=== PATIENT | female | born 1950 | race Caucasian/White ===

== ENCOUNTER 2021-03-16 11:52 | Observation (INO) | payer MEDICARE ==
[2021-03-16 12:53] LABS: Glucose,Whole Blood 99 mg/dL (75-99)
[2021-03-16] MEDS ORDERED: SODIUM CHLORIDE 0.9% 1,000 ML IV STA (13:04)
--- NOTE | 2021-03-16 13:04 | ED ---
General Adult HPI - General Chief complaint: Neuro Symptoms/Deficit Stated complaint: slurred speech, N/V/D Time Seen by Provider: 03/16/21 12:57 Source: patient Mode of arrival: ambulatory Limitations: no limitations - History of Present Illness Initial comments: Patient presents with nausea and vomiting and diarrhea. She also has intermittent confusion. She has a headache. Her symptoms began a few days ago. Although they're waxing and waning, she does feel like her symptoms are getting worse. She has no focal deficits. She has no belly pain. She has no back pain. She does not believe she has lost consciousness. She has had no sick contacts. She hasn't traveling her. She wasn't doing anything when this began. - Related Data Home Medications Medication Instructions Recorded Confirmed Ergocalciferol [Vitamin D2 (1250 1,250 mcg PO Q7D 03/16/21 03/16/21 Mcg = 19091 Iu)] Ferrous Sulfate [Feosol] 325 mg PO DAILY 03/16/21 03/16/21 LORazepam 1 mg PO BID PRN 03/16/21 03/16/21 Levothyroxine Sodium 125 mcg PO DAILY 03/16/21 03/16/21 Naproxen Sodium [Aleve] 220 mg PO DAILY PRN 03/16/21 03/16/21 Allergies Allergy/AdvReac Type Severity Reaction Status Date / Time fentanyl Allergy Per PCP Verified 03/16/21 14:38 Review of Systems ROS Statement: Those systems with pertinent positive or pertinent negative responses have been documented in the HPI. ROS Other: All systems not noted in ROS Statement are negative. Past Medical History Past Medical History: Thyroid Disorder History of Any Multi-Drug Resistant Organisms: None Reported Past Surgical History: No Surgical Hx Reported Past Psychological History: No Psychological Hx Reported Smoking Status: Former smoker Past Alcohol Use History: None Reported Past Drug Use History: None Reported General Exam Limitations: no limitations General appearance: alert, in no apparent distress Head exam: Present: atraumatic, normocephalic, normal inspection Eye exam: Present: normal appearance, PERRL, EOMI. Absent: scleral icterus, co njunctival injection, periorbital swelling ENT exam: Present: normal exam, mucous membranes moist Neck exam: Present: normal inspection. Absent: tenderness, meningismus, lymphadenopathy Respiratory exam: Present: normal lung sounds bilaterally. Absent: respiratory distress, wheezes, rales, rhonchi, stridor Cardiovascular Exam: Present: regular rate, normal rhythm, normal heart sounds. Absent: systolic murmur, diastolic murmur, rubs, gallop, clicks GI/Abdominal exam: Present: soft, normal bowel sounds. Absent: distended, tenderness, guarding, rebound, rigid Extremities exam: Present: normal inspection, full ROM, normal capillary refill. Absent: tenderness, pedal edema, joint swelling, calf tenderness Back exam: Present: normal inspection Neurological exam: Present: alert, oriented X3, CN II-XII intact Psychiatric exam: Present: normal affect, normal mood Skin exam: Present: warm, dry, intact, normal color. Absent: rash Course Vital Signs 03/16/21 12:12 Temperature 97.9 F Pulse Rate 80 Respiratory 16 Rate Blood Pressure 150/80 O2 Sat by Pulse 98 Oximetry EKG Findings - EKG Comments: EKG Findings:: Twelve-lead EKG shows ventricular rate 73 bpm, normal DE interval and QRS complexes, no ST elevation or depression, interpreted by me as normal sinus rhythm. Medical Decision Making - Medical Decision Making Patient presents with continued off-and-on confusion, not feeling well, vomiting. She will be admitted to the hospital. - Lab Data Result diagrams: 03/16/21 13:04 03/16/21 13:04 Lab Results 03/16/21 03/16/21 03/16/21 Range/Units 12:52 13:04 13:04 WBC 4.0 (3.8-10.6) k/uL RBC 4.12 (3.80-5.40) m/uL Hgb 12.8 (11.4-16.0) gm/dL Hct 38.2 (34.0-46.0) % MCV 92.7 (80.0-100.0) fL MCH 31.1 (25.0-35.0) pg MCHC 33.5 (31.0-37.0) g/dL RDW 16.4 H (11.5-15.5) % Plt Count 111 L (150-450) k/uL MPV 7.8 Neutrophils % 78 % Lymphocytes % 9 % Monocytes % 9 % Eosinophils % 2 % Basophils % 0 % Neutrophils # 3.1 (1.3-7.7) k/uL Lymphocytes # 0.3 L (1.0-4.8) k/uL Monocytes # 0.3 (0-1.0) k/uL Eosinophils # 0.1 (0-0.7) k/uL Basophils # 0.0 (0-0.2) k/uL Anisocytosis Slight PT 12.7 H (9.0-12.0) sec INR 1.2 H (<1.2) APTT 23.1 (22.0-30.0) sec Sodium (137-145) mmol/L Potassium (3.5-5.1) mmol/L Chloride (98-107) mmol/L Carbon Dioxide (22-30) mmol/L Anion Gap mmol/L BUN (7-17) mg/dL Creatinine (0.52-1.04) mg/dL Est GFR (CKD-EPI)AfAm (>60 ml/min/1.73 sqM) Est GFR (CKD-EPI)NonAf (>60 ml/min/1.73 sqM) Glucose (74-99) mg/dL POC Glucose (mg/dL) 99 (75-99) mg/dL POC Glu [employer] Technology Instructor ID Pat Cartwright Calcium (8.4-10.2) mg/dL Total Bilirubin (0.2-1.3) mg/dL AST (14-36) U/L ALT (4-34) U/L Alkaline Phosphatase (38-126) U/L Troponin I (0.000-0.034) ng/mL Total Protein (6.3-8.2) g/dL Albumin (3.5-5.0) g/dL Urine Color Urine Appearance (Clear) Urine pH (5.0-8.0) Ur Specific [place] (1.001-1.035) Urine Protein (Negative) Urine Glucose (UA) (Negative) Urine Ketones (Negative) Urine Blood (Negative) Urine Nitrite (Negative) Urine Bilirubin (Negative) Urine Urobilinogen (<2.0) mg/dL Ur Leukocyte Esterase (Negative) 03/16/21 03/16/21 03/16/21 Range/Units 13:04 13:04 14:44 WBC (3.8-10.6) k/uL RBC (3.80-5.40) m/uL Hgb (11.4-16.0) gm/dL Hct (34.0-46.0) % MCV (80.0-100.0) fL MCH (25.0-35.0) pg MCHC (31.0-37.0) g/dL RDW (11.5-15.5) % Plt Count (150-450) k/uL MPV Neutrophils % % Lymphocytes % % Monocytes % % Eosinophils % % Basophils % % Neutrophils # (1.3-7.7) k/uL Lymphocytes # (1.0-4.8) k/uL Monocytes # (0-1.0) k/uL Eosinophils # (0-0.7) k/uL Basophils # (0-0.2) k/uL Anisocytosis PT (9.0-12.0) sec INR (<1.2) APTT (22.0-30.0) sec Sodium 138 (137-145) mmol/L Potassium 4.1 (3.5-5.1) mmol/L Chloride 109 H (98-107) mmol/L Carbon Dioxide 23 (22-30) mmol/L Anion Gap 6 mmol/L BUN 18 H (7-17) mg/dL Creatinine 0.47 L (0.52-1.04) mg/dL Est GFR (CKD-EPI)AfAm >90 (>60 ml/min/1.73 sqM) Est GFR (CKD-EPI)NonAf >90 (>60 ml/min/1.73 sqM) Glucose 113 H (74-99) mg/dL POC Glucose (mg/dL) (75-99) mg/dL POC Glu [employer] Systems Technology Instructor ID Calcium 9.5 (8.4-10.2) mg/dL Total Bilirubin 1.9 H (0.2-1.3) mg/dL AST 87 H (14-36) U/L ALT 56 H (4-34) U/L Alkaline Phosphatase 133 H (38-126) U/L Troponin I <0.012 (0.000-0.034) ng/mL Total Protein 7.9 (6.3-8.2) g/dL Albumin 3.5 (3.5-5.0) g/dL Urine Color Yellow Urine Appearance Clear (Clear) Urine pH 5.5 (5.0-8.0) Ur Specific [place] 1.007 (1.001-1.035) Urine Protein Negative (Negative) Urine Glucose (UA) Negative (Negative) Urine Ketones Negative (Negative) Urine Blood Negative (Negative) Urine Nitrite Negative (Negative) Urine Bilirubin Negative (Negative) Urine Urobilinogen <2.0 (<2.0) mg/dL Ur Leukocyte Esterase Negative (Negative) Disposition Clinical Impression: Confusion Disposition: ADMITTED IP TO THIS HOSP Condition: Fair Referrals: Shine Carcamo MD [Primary Care Provider] - 1-2 days
[2021-03-16] MEDS ORDERED: ONDANSETRON 4 MG/2 ML VIAL IVP STA ×2 (13:05→16:08)
[2021-03-16 13:23] LABS: Anisocytosis Slight; Basophils % (A) 0 %; Eosinophils # (A) 0.1 k/uL (0-0.7); Eosinophils % (A) 2 %; HCT 38.2 % (34.0-46.0); HGB 12.8 gm/dL (11.4-16.0); Lymphocytes # (A) 0.3 k/uL (1.0-4.8); Lymphocytes % (A) 9 %; MCH 31.1 pg (25.0-35.0); MCHC 33.5 g/dL (31.0-37.0); MCV 92.7 fL (80.0-100.0); Mean Platelet Volume 7.8; Monocytes # (A) 0.3 k/uL (0-1.0); Monocytes % (A) 9 %; Neutrophils # (A) 3.1 k/uL (1.3-7.7); Neutrophils % (A) 78 %; Platelet Count 111 k/uL (150-450); RBC 4.12 m/uL (3.80-5.40); RDW 16.4 % (11.5-15.5)
[2021-03-16 13:31] LABS: ALT 56 U/L (4-34); AST 87 U/L (14-36); African American GFR (CKD) >90 (>60 ml/min/1.73 sqM); Albumin 3.5 g/dL (3.5-5.0); Alkaline Phosphatase 133 U/L (38-126); Anion Gap 6 mmol/L; Blood Urea Nitrogen 18 mg/dL (7-17); Calcium 9.5 mg/dL (8.4-10.2); Carbon Dioxide 23 mmol/L (22-30); Chloride 109 mmol/L (98-107); Glucose 113 mg/dL (74-99); Non-African American GFR(CKD) >90 (>60 ml/min/1.73 sqM); Potassium 4.1 mmol/L (3.5-5.1); Sodium 138 mmol/L (137-145); Total Bilirubin 1.9 mg/dL (0.2-1.3); Total Protein 7.9 g/dL (6.3-8.2)
[2021-03-16 13:38] LABS: INR 1.2 (<1.2); Partial Thromboplastin Time 23.1 sec (22.0-30.0); Prothrombin Time 12.7 sec (9.0-12.0)
--- NOTE | 2021-03-16 13:39 | XR ---
EXAMINATION TYPE: XR chest 1V portable DATE OF EXAM: 03/16/2021 COMPARISON: NONE HISTORY: Altered mental status TECHNIQUE: Single frontal view of the chest is obtained. FINDINGS: There is no focal air space opacity, pleural effusion, or pneumothorax seen. The cardiac silhouette size is within normal limits. The osseous structures are intact. Atherosclerotic change aorta. Diffuse osteopenia and arthropathy of the shoulders. IMPRESSION: No acute process.
--- NOTE | 2021-03-16 14:04 | CT ---
EXAMINATION TYPE: CT brain wo con DATE OF EXAM: 03/16/2021 COMPARISON: None HISTORY: 70-year-old female slurred speech, forgetfulness, Confusion TECHNIQUE: Examination was done in axial plane without intravenous contrast. Coronal and sagittal r econstructions performed. CT DLP: 1125.4 mGycm Automated exposure control for dose reduction was used. FINDINGS: There is no evidence of acute intracranial hemorrhage, acute ischemic changes, mass, mass-effect, or extra-axial fluid collection. There is no effacement of cerebral sulci or basal subarachnoid cister ns. There is no hydrocephalus. There is no midline shift. Lutz-white matter distinction is preserv ed. There appears to have been previous medial maxillary antrectomies. Large lobulated soft tissue and fa tty density filling the nasal cavity at the level of the middle meatus measuring 2.4 x 2.0 cm. Direct visualization recommended. Rightward nasal septal deviation. Mastoid air cells are well pneumatized. The globes are intact. IMPRESSION: 1. No acute intracranial abnormality seen. 2. Previous sinonasal surgery. However, there is 2.4 cm lobulated soft tissue/fat density lesion in t he left nasal cavity. Recommend outpatient ENT referral for direct inspection.
[2021-03-16 14:57] LABS: Appearance,Urine Clear (Clear); Bilirubin,Urine Negative (Negative); Blood,Urine Negative (Negative); Color,Urine Yellow; Glucose,Urine (UA) Negative (Negative); Ketones,Urine Negative (Negative); Leukocyte Esterase,Urine Negative (Negative); Nitrite,Urine Negative (Negative); PH, Urine 5.5 (5.0-8.0); Protein,Urine Negative (Negative); Specific Gravity,Urine 1.007 (1.001-1.035); Urobilinogen,Urine <2.0 mg/dL (<2.0)
[2021-03-16] MEDS ORDERED: MORPHINE SULFATE 4 MG/ML SYRINGE IV STA (16:08)
[2021-03-16] MEDS ORDERED: HYDROcodone/APAP 5-325MG 1 EACH TAB PO PRN (16:13)
[2021-03-16] MEDS ORDERED: MAG HYDROX/AL HYDROX/SIMETH 30 ML CUP PO PRN (16:13)
[2021-03-16] MEDS ORDERED: NALOXONE 0.4 MG/ML 1 ML VIAL IV PRN (16:13)
[2021-03-16] MEDS ORDERED: ONDANSETRON 4 MG/2 ML VIAL IVP PRN (16:13)
[2021-03-16] MEDS ORDERED: TEMAZEPAM 15 MG CAP PO PRN (16:13)
[2021-03-16] MEDS ORDERED: ERGOCALCIFEROL 1,250 MCG (50,000 IU) CAPSULE PO SCH (16:15)
[2021-03-16] MEDS: SODIUM CHLORIDE 0.9% 1,000 ML IV SCH (18:09)
--- NOTE | 2021-03-16 21:57 | P.HPIM ---
History of Present Illness H&P Date: 03/16/21 Chief Complaint: Headache History of presenting complaint: This is a pleasant 70-year-old patient Dr. Carcamo. Patient rather good health except for hypothyroid. Patient's had a headache mainly in the front full code 15 days. Very minimal tenderness. No change in vision. No fever. No neck stiffness. Has had vomiting on and off. Her had asked her to come to the hospital but she had declined. Her 24 hours she's been having significant dry heaving. Denies any infectious symptoms. No muscle weakness. No tenderness. Just generalized weakness. Denies any head injury history. Slight photophobia Review of systems: GEN.: Tired EYES: None HEENT: Has above NECK: None RESPIRATORY: None CARDIOVASCULAR: None GASTROINTESTINAL: None GENITOURINARY: Urinary incontinence] MUSCULOSKELETAL: None LYMPHATICS: None HEMATOLOGICAL: None PSYCHIATRY: None NEUROLOGICAL: No focal Past medical history to include: Hypothyroid Social history: . No alcohol. Did smoke in the past. Family history: Aneurysm abdominal Physical examination: VITAL SIGNS: 97.9, 80, 16, 150/80, 98% room air GENERAL: BMI 31.6, laying in bed, tired. EYES: Pupils equal. Conjunctiva normal. HEENT: External appearance of nose and ears normal, oral cavity grossly normal. Mild frontal tenderness NECK: JVD not raised; masses not palpable. HEART: First and second heart sounds are normal; no edema. LUNGS: Respiratory rate normal; clear to auscultation. ABDOMEN: Soft, nontender, liver spleen not palpable, no masses palpable. PSYCH: [Alert and oriented x3; mood and affect tired. NEUROLOGICAL: Cranial nerves grossly intact; no facial asymmetry, power and sensation grossly intact. LYMPHATICS: No lymph nodes palpable in the axilla and neck INVESTIGATIONS, reviewed in the clinical context: WBC 4 hemoglobin 12.8 platelets 111 potassium 4.1 BUN 18 creatinine 0.47 Total bilirubin 1.9 AST 87 ALT 56 Troponin I less than 0.0123 UA negative EKG tracing personally reviewed by me-normal sinus rhythm Chest x-ray film personally reviewed by me-no infiltrates Assessment and plan: -This patient now has a 2 week history of headaches predominately in the front. Slight frontal tenderness. Intermittent nausea vomiting. Now with significant dry heaving. Patient has no infective symptoms. This could be migrainous status. Less likely but need to rule out his temporal arteritis. She has no prominent temporal artery. We'll check patient's ESR. -Clinical dehydration IV fluids -Hypothyroid Resume Synthroid Care was discussed with the patient. IV fluids at 1 50 mL an hour a day. Subcu Lovenox for DT prophylaxis. Consultation to neurology. Check ESR. Repeat BMP in the morning. Past Medical History Past Medical History: Thyroid Disorder History of Any Multi-Drug Resistant Organisms: None Reported Past Surgical History: No Surgical Hx Reported Additional Past Surgical History / Comment(s): Patient states she is not going through her life history Past Anesthesia/Blood Transfusion Reactions: No Reported Reaction Past Psychological History: No Psychological Hx Reported Smoking Status: Former smoker Past Alcohol Use History: None Reported Past Drug Use History: None Reported - Past Family History Mother Additional Family Medical History / Comment(s): abdominal aneurysm Medications and Allergies Home Medications Medication Instructions Recorded Confirmed Type Ergocalciferol [Vitamin D2 (1250 1,250 mcg PO Q7D 03/16/21 03/16/21 History Mcg = 65720 Iu)] Ferrous Sulfate [Feosol] 325 mg PO DAILY 03/16/21 03/16/21 History LORazepam 1 mg PO BID PRN 03/16/21 03/16/21 History Levothyroxine Sodium 125 mcg PO DAILY 03/16/21 03/16/21 History Naproxen Sodium [Aleve] 220 mg PO DAILY PRN 03/16/21 03/16/21 History Allergies Allergy/AdvReac Type Severity Reaction Status Date / Time fentanyl Allergy Per PCP Verified 03/16/21 17:39 Physical Exam Vitals: Vital Signs Temp Pulse Pulse Resp BP BP Pulse Ox 03/16/21 19:14 97.8 F 79 20 153/73 94 L 03/16/21 17:30 98.1 F 94 16 168/78 97 03/16/21 17:04 78 18 162/70 98 03/16/21 12:12 97.9 F 80 16 150/80 98 Intake and Output 03/16/21 03/16/21 03/16/21 06:59 14:59 22:59 Other: Weight 88.904 kg 88.904 kg Results CBC & Chem 7: 03/16/21 13:04 03/16/21 13:04 Labs: Abnormal Lab Results - Last 24 Hours (Table) 03/16/21 03/16/21 03/16/21 Range/Units 13:04 13:04 13:04 RDW 16.4 H (11.5-15.5) % Plt Count 111 L (150-450) k/uL Lymphocytes # 0.3 L (1.0-4.8) k/uL PT 12.7 H (9.0-12.0) sec INR 1.2 H (<1.2) Chloride 109 H (98-107) mmol/L BUN 18 H (7-17) mg/dL Creatinine 0.47 L (0.52-1.04) mg/dL Glucose 113 H (74-99) mg/dL Total Bilirubin 1.9 H (0.2-1.3) mg/dL AST 87 H (14-36) U/L ALT 56 H (4-34) U/L Alkaline Phosphatase 133 H (38-126) U/L Ammonia (<30) umol/L 03/16/21 Range/Units 19:06 RDW (11.5-15.5) % Plt Count (150-450) k/uL Lymphocytes # (1.0-4.8) k/uL PT (9.0-12.0) sec INR (<1.2) Chloride (98-107) mmol/L BUN (7-17) mg/dL Creatinine (0.52-1.04) mg/dL Glucose (74-99) mg/dL Total Bilirubin (0.2-1.3) mg/dL AST (14-36) U/L ALT (4-34) U/L Alkaline Phosphatase (38-126) U/L Ammonia 31 H (<30) umol/L Thrombosis Risk Factor Assmnt - Choose All That Apply Each Factor Represents 1 point: Obesity (BMI >25) Each Risk Factor Represents 2 Points: Age 61-74 years Thrombosis Risk Factor Assessment Total Risk Factor Score: 3 Thrombosis Risk Factor Assessment Level: Moderate Risk
--- NOTE | 2021-03-16 21:58 | CT ---
EXAMINATION TYPE: CT angio head neck DATE OF EXAM: 03/16/2021 COMPARISON: None HISTORY: confusion, syoncope CT DLP: 425.4 mGycm Automated exposure control for dose reduction was used. CONTRAST: Performed with IV Contrast, patient injected with 65 mL of Isovue 370. Images obtained from the aortic arch to the vertex of the brain with IV contrast Isovue 65 mL There are 3-D post processed images. Aortic arch is intact. There is no aneurysm or dissection. There is atherosclerotic vascular calcific ation in the aortic arch. There is arterial flow in both subclavian arteries. There is arterial flow in the common internal and external carotid arteries bilaterally. There is atherosclerotic plaque at the carotid artery bifurcations. There is estimated 25% stenosis in the proximal left internal caroti d artery due to calcified plaque. There is similar estimated 25% stenosis proximal right internal car otid artery. There is arterial flow in both vertebral arteries. There is arterial flow in the vertebr obasilar artery system. There is no evidence of carotid or vertebral artery aneurysm or dissection. There is arterial flow in the anterior middle and posterior cerebral arteries. There is no mass effec t. I see no evidence of intracranial aneurysm or neovascularity. There is normal enhancement of the v enous sinuses. I see no evidence of intracranial arterial stenosis. IMPRESSION: Mild plaque at the carotid artery bifurcations and estimated 25% stenosis at the origins of both inte rnal carotid arteries. Atheromatous thoracic aorta. No aneurysm. No significant intracranial angiographic abnormality.
[2021-03-17] MEDS: SODIUM CHLORIDE 0.9% 1,000 ML IV SCH ×2 (03:35→08:03)
[2021-03-17 05:11] LABS: African American GFR (CKD) >90 (>60 ml/min/1.73 sqM); Anion Gap 4 mmol/L; Blood Urea Nitrogen 18 mg/dL (7-17); Calcium 8.5 mg/dL (8.4-10.2); Carbon Dioxide 23 mmol/L (22-30); Chloride 110 mmol/L (98-107); Glucose 145 mg/dL (74-99); Non-African American GFR(CKD) >90 (>60 ml/min/1.73 sqM); Sodium 137 mmol/L (137-145)
[2021-03-17] MEDS ORDERED: LEVOTHYROXINE 125 MCG TAB PO SCH (06:30)
[2021-03-17] MEDS: ONDANSETRON 4 MG/2 ML VIAL IVP PRN ×2 (08:01→16:13)
[2021-03-17] MEDS ORDERED: FERROUS SULFATE 325 MG TAB PO SCH (09:00)
--- NOTE | 2021-03-17 09:47 | P.CRDCN ---
History of Present Illness Consult date: 03/17/21 History of present illness: HISTORY OF PRESENT ILLNESS: This is a 70-year-old female with a past medical history significant for with hypothyroidism. 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 We have been asked to see the patient in consultation for syncope. Patient examined at the bedside. Patient denies having any episodes of syncope and there is no documentation of syncopal episodes in the EMR. Patient reports 3 days ago she ordered a pizza at night and when the delivery and was at her door he kept asking her "don't you on your pizza?" Patient states that she felt "jumbled" and was unsure with what to do with her hands at that time. She ended up getting her who helped get the pizza from the deliveryman. She states the following morning she woke up and had had multiple episodes of diarrhea in the house and was told by her she was sleepwalking. Patient reports for the past 3 days she has been dry heaving and is unable to keep any fluids down. Patient did have a couple episodes of retching during the examination however she did not have any emesis. Patient also reports having a headache for the past few days as well which is unusual for her she does not normally get headaches. The patient does report having a stiff neck this morning and reports that she has been having difficulty getting comfortable in bed. The patient is a nonsmoker. She reports having a glass of wine maybe once or twice a month. She currently denies chest pain or pressure. She denies shortness of breath. EKG reveals mechanism with no signs of acute ischemia Chest xray negative for acute process Laboratory data: WBC 4.0. Hemoglobin 12.8. Platelet count 111. Sodium 137. Potassium 4.0. BUN 18. Creatinine 0.51. Troponin negative 3. Current home cardiac medications include none CT angiogram head and neck: Mild plaque at the carotid artery bifurcations an estimated 25% stenosis at the origins of both internal carotid arteries. CT brain: Negative for acute intracranial process REVIEW OF SYSTEMS: At the time of my exam: CONSTITUTIONAL: Denies fever or chills. HEENT: Denies blurred vision, vision changes, or eye pain. Denies hemoptysis CARDIOVASCULAR: Denies chest pain. Denies orthopnea. Denies PND. Denies palpitations RESPIRATORY: Denies shortness of breath. GASTROINTESTINAL: Denies abdominal pain. Denies nausea or vomiting. HEMATOLOGIC: Denies bleeding disorders. GENITOURINARY: Denies any blood in urine. SKIN: Denies pruitis. Denies rash. PHYSICAL EXAM: VITAL SIGNS: Reviewed. GENERAL: Well-developed in no acute distress. HEENT: Head is normocephalic. Pupils are equal, round. Sclerae anicteric. Mucous membranes of the mouth are moist. Neck supple. No JVD or thyromegaly LUNGS: Respirations even and unlabored. Lungs essentially clear to auscultation bilaterally. HEART: Regular rate and rhythm. S1 and S2 heard. ABDOMEN: Soft. Nondistended. Nontender. EXTREMITIES: Normal range of motion. No clubbing or cyanosis. Peripheral pulses intact. No lower extremity edema NEUROLOGIC: Awake and alert. Oriented x 3. ASSESSMENT: Syncope, ruled out, patient denies syncopal episode Encephalopathy, rule out neurological process such as meningitis Headache Nausea and vomiting 3 days Diarrhea Hypothyroidism PLAN: Will obtain 2D echo to assess cardiac structure and function If no significant abnormalities noted on echocardiogram, no further cardiac wor kup will be recommended Continue workup per neurology Further recommendations pending patient course Nurse practitioner note has been reviewed by physician. Signing provider agrees with the documented findings, assessment, and plan of care. Past Medical History Past Medical History: Thyroid Disorder History of Any Multi-Drug Resistant Organisms: None Reported Past Surgical History: No Surgical Hx Reported Additional Past Surgical History / Comment(s): Patient states she is not going through her life history Past Anesthesia/Blood Transfusion Reactions: No Reported Reaction Past Psychological History: No Psychological Hx Reported Smoking Status: Former smoker Past Alcohol Use History: None Reported Past Drug Use History: None Reported - Past Family History Mother Additional Family Medical History / Comment(s): abdominal aneurysm Medications and Allergies Home Medications Medication Instructions Recorded Confirmed Type Ergocalciferol [Vitamin D2 (1250 1,250 mcg PO Q7D 03/16/21 03/16/21 History Mcg = 28538 Iu)] Ferrous Sulfate [Feosol] 325 mg PO DAILY 03/16/21 03/16/21 History LORazepam 1 mg PO BID PRN 03/16/21 03/16/21 History Levothyroxine Sodium 125 mcg PO DAILY 03/16/21 03/16/21 History Naproxen Sodium [Aleve] 220 mg PO DAILY PRN 03/16/21 03/16/21 History Allergies Allergy/AdvReac Type Severity Reaction Status Date / Time fentanyl Allergy Per PCP Verified 03/16/21 17:39 Physical Exam Vitals: Vital Signs Temp Pulse Pulse Pulse Pulse Pulse Resp 03/17/21 07:27 78 86 84 78 16 03/17/21 07:10 98.2 F 79 16 03/17/21 03:31 86 84 78 03/17/21 02:00 98.1 F 78 16 03/16/21 19:14 97.8 F 79 20 03/16/21 17:30 98.1 F 94 16 03/16/21 17:04 78 18 03/16/21 12:12 97.9 F 80 16 BP BP BP BP BP Pulse Ox 03/17/21 07:27 03/17/21 07:10 160/72 96 03/17/21 03:31 159/83 157/75 156/77 03/17/21 02:00 156/77 98 03/16/21 19:14 153/73 94 L 03/16/21 17:30 168/78 97 03/16/21 17:04 162/70 98 03/16/21 12:12 150/80 98 Intake and Output 03/16/21 03/17/21 03/17/21 22:59 06:59 14:59 Intake Total 50 50 Balance 50 50 Intake: Oral 50 50 Other: Voiding Method Toilet Toilet # Voids 1 3 3 Weight 88.904 kg Results 03/16/21 13:04 03/17/21 04:42 Cardiac Enzymes 03/16/21 03/16/21 03/16/21 Range/Units 13:04 13:04 17:21 AST 87 H (14-36) U/L Troponin I <0.012 <0.012 (0.000-0.034) ng/mL 03/16/21 Range/Units 20:29 AST (14-36) U/L Troponin I <0.012 (0.000-0.034) ng/mL Coagulation 03/16/21 Range/Units 13:04 PT 12.7 H (9.0-12.0) sec APTT 23.1 (22.0-30.0) sec CBC 03/16/21 Range/Units 13:04 WBC 4.0 (3.8-10.6) k/uL RBC 4.12 (3.80-5.40) m/uL Hgb 12.8 (11.4-16.0) gm/dL Hct 38.2 (34.0-46.0) % Plt Count 111 L (150-450) k/uL Comprehensive Metabolic Panel 03/16/21 03/17/21 Range/Units 13:04 04:42 Sodium 138 137 (137-145) mmol/L Potassium 4.1 4.0 (3.5-5.1) mmol/L Chloride 109 H 110 H (98-107) mmol/L Carbon Dioxide 23 23 (22-30) mmol/L BUN 18 H 18 H (7-17) mg/dL Creatinine 0.47 L 0.51 L (0.52-1.04) mg/dL Glucose 113 H 145 H (74-99) mg/dL Calcium 9.5 8.5 (8.4-10.2) mg/dL AST 87 H (14-36) U/L ALT 56 H (4-34) U/L Alkaline Phosphatase 133 H (38-126) U/L Total Protein 7.9 (6.3-8.2) g/dL Albumin 3.5 (3.5-5.0) g/dL Current Medications Generic Name Dose Route Start Last Admin Trade Name Freq PRN Reason Stop Dose Admin Hydrocodone Bitart/Acetaminophen 1 each 03/16/21 16:13 Hydrocodone/Apap 5-325mg 1 Each Tab PO Q4HR PRN Moderate Pain Al Hydroxide/Mg Hydroxide 15 ml 03/16/21 16:13 Mag Hydrox/Al Hydrox/Simeth 30 Ml Cup PO Q6HR PRN Indigestion Ergocalciferol 1,250 mcg 03/16/21 16:15 03/16/21 23:32 Ergocalciferol 1,250 Mcg (50,000 Iu) Capsule PO Not Given Q7D JACKELINE Ferrous Sulfate 325 mg 03/17/21 09:00 Ferrous Sulfate 325 Mg Tab PO DAILY JACKELINE Sodium Chloride 1,000 mls @ 150 mls/hr 03/16/21 18:00 03/17/21 03:35 Saline 0.9% IV 150 mls/hr .Q6H40M JACKELINE Administration Levothyroxine Sodium 125 mcg 03/17/21 06:30 03/17/21 05:57 Levothyroxine 125 Mcg Tab PO 125 mcg DAILY@0630 JACKELINE Administration Naloxone HCl 0.2 mg 03/16/21 16:13 Naloxone 0.4 Mg/Ml 1 Ml Vial IV Q2M PRN Opioid Reversal Ondansetron HCl 4 mg 03/16/21 17:52 Ondansetron 4 Mg/2 Ml Vial IVP Q6H PRN Nausea And Vomiting Temazepam 15 mg 03/16/21 16:13 Temazepam 15 Mg Cap PO HS PRN Insomnia Intake and Output 03/16/21 03/17/21 03/17/21 22:59 06:59 14:59 Intake Total 50 50 Balance 50 50 Intake: Oral 50 50 Other: Voiding Method Toilet Toilet # Voids 1 3 3 Weight 88.904 kg 03/16/21 13:04 03/17/21 04:42
--- NOTE | 2021-03-17 11:11 | ECHOF ---
Referral Reason:lv function MEASUREMENTS -------- HEIGHT: 167.6 cm WEIGHT: 88.9 kg BP: RVIDd: 2.9 cm (< 3.3) IVSd: 1.2 cm (0.6 - 1.1) LVIDd: 4.2 cm (3.9 - 5.3) LVPWd: 1.0 cm (0.6 - 1.1) IVSs: 1.6 cm LVIDs: 2.3 cm LVPWs: 1.8 cm LAESV Index (A-L): 24.44 ml/m Ao Diam: 3.5 cm (2.0 - 3.7) AV Cusp: 2.1 cm (1.5 - 2.6) LA Diam: 3.2 cm (2.7 - 3.8) MV EXCURSION: 11.106 mm (> 18.000) MV EF SLOPE: 67 mm/s (70 - 150) EPSS: 1.0 cm MV E Dariusz: 1.19 m/s MV DecT: 255 ms MV A Dariusz: 1.01 m/s MV E/A Ratio: 1.18 RAP: 5.00 mmHg RVSP: 19.40 mmHg FINDINGS -------- Sinus rhythm. This was a technically adequate study. The left ventricular size is normal. There is mild concentric left ventricular hypertrophy. Overa ll left ventricular systolic function is normal with, an EF between 55 - 60 %. The diastolic fillin g pattern is normal for the age of the patient 14.96. Normal LAP Grade 1 Diastolic Dysfunction. The right ventricle is normal in size. Normal LA size by volume 22+/-6 ml/m2. The right atrial size is normal. The aortic valve is trileaflet, and appears structurally normal. No aortic stenosis or regurgitation. The mitral valve leaflets are mildly thickened. There is trace mitral regurgitation. The tricuspid valve appears structurally normal. Mild tricuspid regurgitation present. Right vent ricular systolic pressure is normal at < 35 mmHg. There is no pulmonic regurgitation present. The aortic root size is normal. Normal inferior vena cava with normal inspiratory collapse consistent with estimated right atrial pre ssure of 5 mmHg. There is no pericardial effusion. CONCLUSIONS -------- 1. There is mild concentric left ventricular hypertrophy. 2. Overall left ventricular systolic function is normal with, an EF between 55 - 60 %. 3. Normal LAP Grade 1 Diastolic Dysfunction. 4. Normal LA size by volume 22+/-6 ml/m2. 5. The aortic valve is trileaflet, and appears structurally normal. No aortic stenosis or regurgitati on. 6. There is trace mitral regurgitation. 7. Mild tricuspid regurgitation present. 8. There is no pericardial effusion. EQUIPMENT ENGINEERING TECHNICIAN: Faviola Callahan RDCS
--- NOTE | 2021-03-17 12:25 | P.CNNES ---
History of Present Illness Consult date: 03/17/21 Requesting physician: Manolo Apple Reason for Consult: syncope and confusion History of Present Illness: This is a 70-year-old woman with medical history of hypothryoidism since the emergency department on 03/16/2021 for headache and intermittent confusion. Some of the history is obtained from patient's ([place]) and medical records. The patient's she stated that the for last 3 week she's been having recurrent episodes of nausea, vomiting, diarrhea and the been recurrent and that feels agitated. She had few headaches over the bilateral frontal region and felt it was very bothersome but could not describe for me. Per the patient's he stated that that she did have the headache on that presented to the hospital which was on the bilateral frontal region as well as possibly one other headache in the last 3 weeks. Patient dated that the pain radiated to the central region and currently resolved. She does have photophobia denies photophobia. She denies of any focal weakness, numbness. She denies of any difficulty getting her words out. She denies of any neck pain and kept on repeating that she does not have headache right now. Regarding visual disturbance initially she said no but per the patient's he thinks possibly she had some visual disturbance over the right eye that he thinks happened in the last 3 weeks. She denies of any diplopia or the ptosis. Denies of any fevers recently, any rash, any recent travels, any animal bites or any tick bite that she recalls. She doesn't have any the prior history of headaches in the past according to her. She denies of any head trauma. She denies of any loss of consciousness. Per the patient that he stated that the patient was sleep walk-in and the last 1 week and he witnessed one episode which is very off. I spoke with the cardiology team regarding episode of syncope that is placed on consult and they stated that the there not aware that the patient had a syncopal episode and there is no documentation of that. Patient denies of any history of stroke or seizure. Show medications Synthroid, Ativan 1 mg twice a day when necessary, vitamin D, ferrous sulfate, naproxen Some other workup in the hospital consisted of: Initial vital signs: Blood pressure of 150/80, heart rate of 80, temperature of 97.9 Fahrenheit oral, respiratory of 16 and pulse ox of 98% room air. Since the patient has been the hospital the patient has been afebrile. CT of the head is reported as no acute intracranial abnormality seen. Previous sinonasal surgery. However there is 2.4 cm up lobulated soft tissue/fat density lesion in the left nasal cavity. Recommend outpatient ENT referral for direct inspection CT angiography of the head and neck was reported as mild plaque at the carotid artery bifurcation and estimated 25% stenosis at the origins of both internal carotid arteries. After Ike thoracic aorta. No aneurysm. CBC with differential is blood blood cells 4.0 which is within normal limits. Patient poorly count is 111 which is low. The ESR is 33 (normal is 0-20). Upon checking medical record in 2014 the patient had the platelets of 68,000 Chemistry panel is sodium is 138, glucose is 113 which is unremarkable, calcium is 9.5 which is normal. Creatinine is 0.47 potassium 4.1 which is within normal limits. Patient AST is 87 and ALT of 56 which is elevated. Ammonia is 31 which is slightly elevated. Vitamin B12 is 365 which is considered normal but low-normal Review of Systems Review of system: The 12 point system was reviewed and apparent positive and negative per HPI. Past Medical History Past Medical History: Thyroid Disorder History of Any Multi-Drug Resistant Organisms: None Reported Past Surgical History: No Surgical Hx Reported Additional Past Surgical History / Comment(s): Patient states she is not going through her life history Past Anesthesia/Blood Transfusion Reactions: No Reported Reaction Past Psychological History: No Psychological Hx Reported Smoking Status: Former smoker Past Alcohol Use History: None Reported Past Drug Use History: None Reported - Past Family History Mother Additional Family Medical History / Comment(s): abdominal aneurysm Medications and Allergies Home Medications Medication Instructions Recorded Confirmed Type Ergocalciferol [Vitamin D2 (1250 1,250 mcg PO Q7D 03/16/21 03/16/21 History Mcg = 17825 Iu)] Ferrous Sulfate [Feosol] 325 mg PO DAILY 03/16/21 03/16/21 History LORazepam 1 mg PO BID PRN 03/16/21 03/16/21 History Levothyroxine Sodium 125 mcg PO DAILY 03/16/21 03/16/21 History Naproxen Sodium [Aleve] 220 mg PO DAILY PRN 03/16/21 03/16/21 History Allergies Allergy/AdvReac Type Severity Reaction Status Date / Time fentanyl Allergy Per PCP Verified 03/16/21 17:39 Physical Examination - Vital Signs Vital Signs: Vital Signs Temp Pulse Pulse Pulse Pulse Pulse Resp 03/17/21 07:27 78 86 84 78 16 03/17/21 07:10 98.2 F 79 16 03/17/21 03:31 86 84 78 03/17/21 02:00 98.1 F 78 16 03/16/21 19:14 97.8 F 79 20 03/16/21 17:30 98.1 F 94 16 03/16/21 17:04 78 18 03/16/21 12:12 97.9 F 80 16 BP BP BP BP BP Pulse Ox 03/17/21 07:27 03/17/21 07:10 160/72 96 03/17/21 03:31 159/83 157/75 156/77 03/17/21 02:00 156/77 98 03/16/21 19:14 153/73 94 L 03/16/21 17:30 168/78 97 03/16/21 17:04 162/70 98 03/16/21 12:12 150/80 98 Intake and Output 03/16/21 03/17/21 03/17/21 22:59 06:59 14:59 Intake Total 50 50 Balance 50 50 Intake: Oral 50 50 Other: Voiding Method Toilet Toilet # Voids 1 3 3 Weight 88.904 kg GENERAL: The patient is lying in bed and is not in moderate acute distress. She seems agitated HENT: Neck is supple. No nuchal rdigity. CHEST: The heart rate is regular rate rhythm. No murmurs to auscultation. No carotid bruit bilaterally. LUNG: Clear to auscultation bilaterally no wheezing noted throughout. Not labored breathing. ABDOMEN/GI: Bowel sounds present in all 4 quadrants. No tenderness to palpation throughout. NEUROLOGICAL: Higher mental function: The patient is awake, alert, oriented to self, place and time. Patient is following commands. No aphasia and no neglect. Cranial nerves: The pupils are round, equal and reactive to light and accommodation. She has echymoses around the right eye (per the he noticed it on presentation to the hospital). Visual hdz are full to confrontation throughout. Extraocular movement is intact no nystagmus is noted. Facial sensation is normal to touch throughout. The facial strength is normal throughout. Hearing is normal bilaterally to hand rub. Tongue is midline and moved [id number] without any difficulty. No dysarthria is noted. Shoulder shrug is normal bilaterally. Motor: Gait is deferred. The strength is 5 over 5 throughout except right hand rd project manager is 5- bilaterally. Normal tone and bulk. Cerebellum: Normal finger to nose heel to hernández bilaterally. Sensation: Sensation is normal to touch throughout. Reflexes (right/left): 3+ throughout upper while lowers are 2+. Plantars are mute bilaterally. Results Chest x-ray is reported as no acute process Urinalysis negative for urinary tract infection. - Laboratory Findings CBC and BMP: 03/16/21 13:04 03/17/21 04:42 Abnormal Lab Findings: Abnormal Labs 03/16/21 03/16/21 03/16/21 13:04 13:04 13:04 RDW 16.4 H Plt Count 111 L Lymphocytes # 0.3 L ESR PT 12.7 H INR 1.2 H Chloride 109 H BUN 18 H Creatinine 0.47 L Glucose 113 H Total Bilirubin 1.9 H AST 87 H ALT 56 H Alkaline Phosphatase 133 H Ammonia 03/16/21 03/16/21 03/17/21 13:04 19:06 04:42 RDW Plt Count Lymphocytes # ESR 33 H PT INR Chloride 110 H BUN 18 H Creatinine 0.51 L Glucose 145 H Total Bilirubin AST ALT Alkaline Phosphatase Ammonia 31 H Assessment and Plan Assessment: * Cephalgia over bilateral frontal, with slight elevated ESR (33) and episodes of nausea, vomiting, diarrhea for the past 3 weeks, episode of sleep walking. Unknown exact cause at this time. CTA head/neck (negative). Does not seem meningoencpehalitis since no leukocytosis or fever or nuchal rigidity. * Has echymoses around the right eye of unknow etiology at this time. CTA head /neck (negative). * Has some component of hepatic encephalopathy (elevated LFT and slight elevated ammonia) * Chronic thrombocytopenia * History of Hypothyroidism Plan: I ordered MRI the brain, orbit with and without urgent. Ordered an EEG. I'll not start the patient on an antiepileptic drug unless there is epileptiform discharges or seizure on the EEG. I notified the patient if work-up negative above will consider lumbar puncture but she refused. Pending TSH and folate level. Cardiology is consulted for syncopal episode and the ordered a 2-D echo. Orthostatic vitals is ordered by the ED and is pending Placed on continuous cardiac monitoring Every 4 hour neuro checks We'll defer the elevated liver function was slight ammonia management to the primary team. We'll defer the rest of the medical management to the primary team. The plan is discussed with the patient, her (Fabián) who is at bedside and her nurse. Thank you for the consultation. Hugo Pierre M.D. Neuro-hospitalist Time with Patient: Greater than 30
[2021-03-17 13:38] LABS: Folate, Serum 15.9 ng/mL
[2021-03-17 14:16] VITALS: BP 155/77; RESP 14; TEMP 98
[2021-03-17 16:01] VITALS: PULSE 78
--- NOTE | 2021-03-17 20:48 | P.DS ---
Providers Date of admission: 03/16/21 16:27 Expected date of discharge: 03/17/21 Attending physician: Manolo Apple Consults: 03/16/21 16:59 Consult Physician Routine Consulting Provider: Hugo Pierre Consult Reason/Comments: syncope and confusion Do you want consulting provider notified?: Yes [facility] Course: Chief Complaint: Headache History of presenting complaint: This is a pleasant 70-year-old patient Dr. Carcamo. Patient rather good health except for hypothyroid. Patient's had a headache mainly in the front full code 15 days. Very minimal tenderness. No change in vision. No fever. No neck stiffness. Has had vomiting on and off. Her had asked her to come to the hospital but she had declined. Her 24 hours she's been having significant dry heaving. Denies any infectious symptoms. No muscle weakness. No tenderness. Just generalized weakness. Denies any head injury history. Slight photophobia. She was started on IV fluids. Antiemetics. March 17: This morning patient was actually looking better. But was very upset. She thought too many excessive testing was done and did not agree with the testing. I did explain to her that neurologist is going to see her and we'll be ordering test based on the diagnosis, that is in the differential. Late in the afternoon that was called by the nurse retail banking manager David that patient was not ready to stay for the MRI or other testing. And would want to leave AMA. Patient was seen by oncology. Did a 2-D echocardiogram. No further testing per them. patient left AMA Discussion and discharge planning more than 35 minutes Consultation: Dr. Pierre from neurology Dr. Ghotra from cardiology Past medical history to include: Hypothyroid Social history: . No alcohol. Did smoke in the past. Family history: Aneurysm abdominal Physical examination: VITAL SIGNS: 98.2, 79, 16, 160/72, 96% room air GENERAL: Laying in bed, more comfortable awake EYES: Pupils equal. Conjunctiva normal. NECK: JVD not raised; masses not palpable. HEART: First and second heart sounds are normal; no edema. LUNGS: Respiratory rate normal; clear to auscultation. ABDOMEN: Soft, nontender, liver spleen not palpable, no masses palpable. PSYCH: [Alert and oriented x3; mood and affect better. Irritated NEUROLOGICAL: Cranial nerves grossly intact; no facial asymmetry, power and sensation grossly intact. INVESTIGATIONS, reviewed in the clinical context: March 17: Potassium 4 BUN 18 creatinine 0.51 2-D echocardiogram: EF 55-60% Vitamin B12 365 folate 15.9 TSH 9.5 free T4 1 0.3. WBC 4 hemoglobin 12.8 platelets 111 potassium 4.1 BUN 18 creatinine 0.47 Total bilirubin 1.9 AST 87 ALT 56 Troponin I less than 0.0123 UA negative EKG tracing personally reviewed by me-normal sinus rhythm Chest x-ray film personally reviewed by me-no infiltrates Assessment and plan: -Persistent headaches with a differential of status migrainous. Rule out temporal arteritis -Clinical dehydration IV fluids -Hypothyroid Resume Synthroid Disposition: Patient left AMA Plan - Discharge Summary New Discharge Prescriptions: No Action LORazepam 1 mg PO BID PRN PRN Reason: Anxiety Ferrous Sulfate [Feosol] 325 mg PO DAILY Naproxen Sodium [Aleve] 220 mg PO DAILY PRN PRN Reason: Pain Ergocalciferol [Vitamin D2 (1250 Mcg = 24519 Iu)] 1,250 mcg PO Q7D Levothyroxine Sodium 125 mcg PO DAILY Discharge Medication List Ergocalciferol [Vitamin D2 (1250 Mcg = 71068 Iu)] 1,250 mcg PO Q7D 03/16/21 [History] Ferrous Sulfate [Feosol] 325 mg PO DAILY 03/16/21 [History] LORazepam 1 mg PO BID PRN 03/16/21 [History] Levothyroxine Sodium 125 mcg PO DAILY 03/16/21 [History] Naproxen Sodium [Aleve] 220 mg PO DAILY PRN 03/16/21 [History] Follow up Appointment(s)/Referral(s): Shine Carcamo MD [Primary Care Provider] - 1-2 days Discharge Disposition: Left Against Medical Advice
--- NOTE | 2021-03-17 21:36 | EEG ---
ELECTROENCEPHALOGRAM REPORT DATE OF SERVICE: 03/17/2021. CLINICAL HISTORY: This is a 70-year-old woman with episode of confusion. The video EEG is obtained to evaluate for seizure activity. RELEVANT MEDICATION: The patient is not on any antiepileptic drugs. EEG TYPE: A routine 21 channel EEG is performed with video using the 10/20 electrode placement system. DESCRIPTION: Wakefulness and drowsiness are obtained. During wakefulness, there is a posterior dominant rhythm of [id number] voltage, well modulated, well sustained of 8- 8.5 hertz activity. There is no physiological stage 2 sleep architecture seen. There is no focal slowing. Interictal and ictal are none. ACTIVATION PROCEDURE: Photic stimulation and hyperventilation is not performed. CLINICAL INTERPRETATION: This is a normal routine EEG. There are no focal slowing, epileptiform discharges or seizure on the EEG. Clinical correlation is recommended. RIMMA / REMY: [id number] / MTDD
== END 2021-03-17 16:31 | disposition left against medical advice (07) ==
LOC: EC 11:52 → 6NMEDSUR 16:27
PROVIDERS: ADMIT Hospitalist; ATTEND Hospitalist
DX: R51.9 Headache, unspecified (principal); E86.0 Dehydration; G93.40 Encephalopathy, unspecified; R94.5 Abnormal results of liver function studies; R70.0 Elevated erythrocyte sedimentation rate; R79.89 Other specified abnormal findings of blood chemistry; N39.3 Stress incontinence (female) (male); R11.2 Nausea with vomiting, unspecified; R19.7 Diarrhea, unspecified; E03.9 Hypothyroidism, unspecified; D69.6 Thrombocytopenia, unspecified; I70.0 Atherosclerosis of aorta; I65.23 Occlusion and stenosis of bilateral carotid arteries; M85.819 Other specified disorders of bone density and structure, unspecified shoulder; M19.019 Primary osteoarthritis, unspecified shoulder; R55 Syncope and collapse; R47.81 Slurred speech; F51.3 Sleepwalking [somnambulism]; E66.9 Obesity, unspecified; Z68.31 Body mass index [BMI] 31.0-31.9, adult; Z79.1 Long term (current) use of non-steroidal anti-inflammatories (NSAID); Z79.890 Hormone replacement therapy; Z79.899 Other long term (current) drug therapy; Z88.5 Allergy status to narcotic agent; Z87.891 Personal history of nicotine dependence; Z82.49 Family history of ischemic heart disease and other diseases of the circulatory system; Z53.29 Procedure and treatment not carried out because of patient's decision for other reasons; M43.6 Torticollis; K72.90 Hepatic failure, unspecified without coma
CPT/HCPCS: 96376 ×2; 96361; 96374; 96375; 99285; 36415; 95816; 93005; 93306; 84439; 82747; 80053; 80048; 85652; 84443; 82607; 82140; 82746; 84484; 85025; 85610; 85730; 81003; 71045; 70496; 70450; 70498; G0378 ×2; J2270; J2405 ×2; Q9967